=== PATIENT | male | born 1990 | race Caucasian/White ===

== ENCOUNTER 2016-04-09 19:09 | Emergency (ER) | payer OTHER ==
[2016-04-09] MEDS ORDERED: ACETAMINOPHEN 325 MG TABLET PO STA (20:12)
[2016-04-09] MEDS ORDERED: IBUPROFEN 600 MG TABLET PO STA (20:12)
[2016-04-09] MEDS ORDERED: IBUPROFEN 600 MG TABLET PO ONE (20:29)
[2016-04-09] MEDS ORDERED: ACETAMINOPHEN 325 MG TABLET PO ONE (20:29)
== END 2016-04-09 20:49 | disposition home or self-care (01) ==
DX: S86.911A Strain of unspecified muscle(s) and tendon(s) at lower leg level, right leg, initial encounter (principal); X50.0XXA Overexertion from strenuous movement or load, initial encounter; Y93.B3 Activity, free weights; Y92.89 Other specified places as the place of occurrence of the external cause
CPT/HCPCS: 73564; 99282; 99283; A9270

== ENCOUNTER 2016-06-12 08:35 | Emergency (ER) | payer OTHER | END 2016-06-12 10:23 | disposition home or self-care (01) | DX: K64.8 Other hemorrhoids (principal) ==